=== PATIENT | female | born 1955 | race Hispanic/Latino ===

== ENCOUNTER 2024-09-25 07:29 | Day surgery (SDC) | payer OTHER ==
[2024-09-25] VITALS (13 sets, daily range): BP systolic 107–159; BP diastolic 50–88; PULSE 68–80; RESP 15–18; TEMP 97–97.8
[~2024-09-25] VITALS: Ht 165.1 cm; Wt 108.9 kg
[2024-09-25] MEDS ORDERED: proPOFol 10 MG/ML 20ML VIAL IV ONE (09:17)
[2024-09-25] MEDS ORDERED: MIDAZOLAM HCL 1 MG/ML 2ML VIAL ONE (09:17)
[2024-09-25] MEDS ORDERED: rocuRONium bROMide 10MG/1ML 5ML VL ONE (09:17)
[2024-09-25] MEDS ORDERED: FENTanyl CITRate PF 50 MCG/1 ML 2ML VIAL ONE ×2 (09:20→13:10)
[2024-09-25] MEDS ORDERED: ROPivacaine 0.5% 5MG/ML 30ML ONE (09:26)
[2024-09-25] MEDS ORDERED: phenylEPHRINE HCL 10 MG/ML 1ML VIAL IV ONE (09:39)
[2024-09-25] MEDS ORDERED: dexaMETHasone SOD PHOSPHATE 10MG/ML 1ML VIAL ONE (09:42)
[2024-09-25 09:44] LABS: BASOPHILS # (AUTO) 0.09 K/uL (0.00-0.20); BASOPHILS % (AUTO) 0.9 % (0.0-5.0); EOSINOPHILS # (AUTO) 0.18 K/uL (0.00-0.70); EOSINOPHILS % (AUTO) 1.8 % (0.0-8.0); HEMATOCRIT 40.7 % (36-48); IMMATURE GRANULOCYTE ABSOLUTE 0.07 K/uL (0-1); LYMPHOCYTES # (AUTO) 2.5 K/uL (1.0-4.8); LYMPHOCYTES % (AUTO) 24.6 % (21.0-51.0); MEAN CORPUSCULAR HEMOGLOBIN 29.9 pg (27.0-33.0); MEAN CORPUSCULAR VOLUME 96.4 fL (79-99); MONOCYTES # (AUTO) 0.6 K/uL (0.1-1.0); MONOCYTES % (AUTO) 6.2 % (3.0-13.0); NEUTROPHILS # (AUTO) 6.7 K/uL (1.8-7.7); NEUTROPHILS % (AUTO) 65.8 % (40.0-77.0); PLATELET COUNT (AUTO) 351 K/uL (130-400); RED BLOOD CELL COUNT(AUTO) 4.22 MIL/uL (4.00-5.50); RED CELL DISTRIBUTION WIDTH 13.9 % (11.0-15.5); WHITE BLOOD COUNT (AUTO) 10.1 K/uL (4.8-10.8)
[2024-09-25 09:53] LABS: CREATININE 0.7 mg/dL (0.5-1.0); POTASSIUM 3.5 mmol/L (3.5-5.1)
[2024-09-25] MEDS: 0.9%NACL 1000ML 1,000 ML IV ONE (09:54)
[2024-09-25] MEDS: ceFAZolin SODIUM 2 GM VIAL ONE (09:54)
--- NOTE | 2024-09-25 10:05 | EKG ---
[facility] Test Date: 2024-09-25 Test Time: 09:20:18 Pat Name: KIMBERLY RUGGIERO Department: [facility] Room: [facility] Gender: F Director Recreation: [id number] : 1955 Requested By: KEITH HOLGUIN Order Number: [id number] Reading MD: Grant Schmidt Measurements Intervals [place] Rate: 89 P: 0 OR: 146 QRS: -33 QRSD: 139 T: 0 QT: 422 QTc: 513 Interpretive Statements Sinus rhythm Right bundle branch block No previous ECG available for comparison Electronically Signed On 09-25-2024 10:32:15 CDT by Grant Schmidt Please click the below link to view image of tracing.
[2024-09-25 10:06] LABS: INR 0.96 (0.85-1.15); PROTHROMBIN TIME 10.2 SEC (9.6-11.6)
[2024-09-25 10:07] LABS: PARTIAL THROMBOPLASTIN TIME 28.8 SEC (26.3-35.5)
[2024-09-25] MEDS: ceFAZolin SODIUM 1 GM VIAL ONE (11:00)
[2024-09-25] MEDS ORDERED: DOLU1TAB2 PO (11:15)
[2024-09-25] MEDS ORDERED: CALCIUM PO (11:15)
[2024-09-25] MEDS ORDERED: ASCO100031 PO (11:15)
[2024-09-25] MEDS ORDERED: TOPIRAMATE PO (11:15)
[2024-09-25] MEDS ORDERED: COQ-10 PO (11:15)
[2024-09-25] MEDS ORDERED: SIMV-46 PO (11:15)
[2024-09-25] MEDS ORDERED: HYDR25TA PO (11:15)
[2024-09-25] MEDS ORDERED: VITAD50000 PO (11:15)
[2024-09-25] MEDS ORDERED: EYE HEALTH COMPLEX PO (11:15)
[2024-09-25] MEDS ORDERED: SITA1TAB6 PO (11:15)
[2024-09-25] MEDS ORDERED: JOINT HEALTH PO (11:15)
[2024-09-25] MEDS ORDERED: LOSA100T59 PO (11:15)
[2024-09-25] MEDS ORDERED: VITAMIN B12 PO (11:15)
[2024-09-25] MEDS ORDERED: LEVO88CA4 PO (11:15)
[2024-09-25] MEDS ORDERED: EMPA10TA PO (11:15)
[2024-09-25] MEDS ORDERED: NEOSTIGMINE METHYLSULFATE 1MG/ML IV ONE (13:10)
[2024-09-25] MEDS ORDERED: HYDR-4060 PO (13:10)
[2024-09-25] MEDS ORDERED: CEPH500B PO (13:10)
[2024-09-25] MEDS ORDERED: GLYCOPYRROLATE 0.2 MG/ML 5 ML VIAL ONE (13:10)
--- NOTE | 2024-09-25 13:20 | OP ---
Operative Note: DATE OF PROCEDURE: 09/25/24 SURGEON: JASMIN ZUNIGA MD COLOR STRAINER: [Saima Colbert CFA] ANESTHESIA: [General anesthesia plus regional block] ANESTHESIOLOGIST/BUTTON STATION WORKER: [Deepak Almeida CRNA] PREOPERATIVE DIAGNOSIS: [Left proximal humerus fracture] POSTOPERATIVE DIAGNOSIS: [Proximal humerus fracture] IMPLANTS: [[employer] small left proximal humerus locking plate] PROCEDURE: [Open reduction internal fixation left proximal humerus fracture] ESTIMATED BLOOD LOSS: [150 mL] INDICATIONS: [69-year-old female with history of pain to the left shoulder secondary to a fall that she sustained by accident and resulted in a greater tuberosity fracture of the proximal humerus. The fracture initially was nondisplaced but later on showed displacement the patient is brought to the operating room for stabilization. Procedure understood, risks, benefits and possible complications and agreed signed the consent form.] DESCRIPTION OF PROCEDURE: [After adequate general anesthesia was achieved and regional block obtained in the left upper extremity the patient was placed in the beach chair position and the arm was prepped and draped in the usual fashion. After identification of the bony landmarks an anterior longitudinal incision was carried down following the deltopectoral line through the skin followed by dissection of the subcutaneous tissue. The deltopectoral line was identified by the cephalic vein and this was elevated with the deltoid laterally entering into the deep space. The short head of the biceps was identified and used as a reference to open the clavipectoral fascia immediately aspirating a he matoma present and been able to identify the fracture. At this point we proceeded to reduce the fracture and to continue the dissection of the lateral cortex of the shaft of the humerus without any difficulty being able to place a short 3 hole proximal humeral plate from [employer] and we applied a pin proximally and a cortical screw in the oval hole distally to be able to visualize the reduction with the use of the C arm noticing that the plate was in adequate position and the reduction had been obtained adequately. We then proceeded to apply cortical screws distally except for the most distal hole in which a locking screw was applied and then we proceeded to apply locking screws proximally the first 1 with visualization with the C arm. Once all the screws were inserted the retractors were removed and x-rays were taken noticing that we had an adequate reduction of the fracture and the screws were in adequate position. The wound was copiously irrigated once again with antibiotic solution and we proceeded then to reapproximate the deltopectoral space with #1 Vicryl simple stitches followed by approximation of the subcutaneous tissue with #2-0 Vicryl inverted stitches and the skin was then approximated with 3-0 Monocryl subcuticularly. Dermabond was applied to the skin and then a soft dressing was applied to cover the incision. There were no complications during the procedure] JASMIN ZUNIGA MD Sep 25, 2024 13:20
[2024-09-25] MEDS: MEPERIDINE-PF 100 MG/ML SYG ONE (13:52)
--- NOTE | 2024-09-25 14:00 | HMCIMG ---
Fluoroscopic guidance History: ORIF LT proximal humerus Fluoroscopic guidance provided. Procedure by ordering physician in operating room suite with fluoroscopic guidance. Several spot images were obtained. Impression: Fluoroscopic guidance.
== END 2024-09-25 15:10 | disposition home or self-care (01) ==
LOC: DAH 07:29
PROVIDERS: ATTEND Orthopaedic Surgery
DX: S42.292A Other displaced fracture of upper end of left humerus, initial encounter for closed fracture (principal); J45.909 Unspecified asthma, uncomplicated; I10 Essential (primary) hypertension; E66.01 Morbid (severe) obesity due to excess calories; I45.10 Unspecified right bundle-branch block; E11.9 Type 2 diabetes mellitus without complications; E03.9 Hypothyroidism, unspecified; Z85.828 Personal history of other malignant neoplasm of skin; Z79.01 Long term (current) use of anticoagulants; W19.XXXA Unspecified fall, initial encounter; Y93.01 Activity, walking, marching and hiking; Y92.89 Other specified places as the place of occurrence of the external cause; Y99.8 Other external cause status
CPT/HCPCS: 23615; 93005; 64415; 80048; 85025; 85610; 85730; 82948 ×2; 36415; 73060; A4663; J7030 ×2; C1713 ×5; J3010 ×2; J0690 ×2; J1100; J3490 ×2; J2250; J2704; J2710; J2175; J2795; J2371; A4930 ×3; A5120; A4215; A4222; A4221; A4216; A4223 ×2; A4600